=== PATIENT | female | born 1935 | race Caucasian/White ===

== ENCOUNTER → 2017-01-22 | Outpatient (CLI) | payer MEDICARE, MEDICAID | LOC: OD 11:36 | PROVIDERS: ATTEND Orthopaedic Surgery | DX: R78.89 Finding of other specified substances, not normally found in blood (principal) | CPT/HCPCS: 36415; 80178 ==

== ENCOUNTER 2017-02-12 10:30 | Emergency (ER) | payer MEDICARE, MEDICAID ==
--- NOTE | 2017-02-12 11:04 | ER Document Report ---
ED Medical Screen (RME) - General Chief Complaint: Back Pain Stated Complaint: BACK PAIN Time Seen by Provider: 02/12/17 11:03 Notes: Patient is bipolar and has dementia. She is brought in by family with complaints of low back pain for approximate 1 week. No known vomiting or diarrhea. No known trauma or fevers. TRAVEL OUTSIDE OF THE [place] IN LAST 30 DAYS: No - Related Data Allergies/Adverse Reactions: No Known Allergies Allergy (Verified 02/12/17 10:40) Home Medications: Current Home Medications Valsartan [Diovan 160 mg Tablet] 80 mg PO DAILY 02/12/17 [History] Past Medical History - Past Medical History Cardiac Medical History: Reports: Hx Hypercholesterolemia, Hx Hypertension Psychiatric Medical History: Reports: Hx Bipolar Disorder, Hx Depression Past Surgical History: Reports: Hx Cardiac Catheterization - Immunizations Hx Diphtheria, Pertussis, Tetanus Vaccination: Yes Physical Exam - Vital signs Vitals: Temp Pulse Resp BP Pulse Ox 98.6 F 96 20 202/72 H 100 02/12/17 10:42 02/12/17 10:42 02/12/17 10:42 02/12/17 10:42 02/12/17 10:42 Course - Vital Signs Vital signs: Temp Pulse Resp BP Pulse Ox 98.6 F 96 20 202/72 H 100 02/12/17 10:42 02/12/17 10:42 02/12/17 10:42 02/12/17 10:42 02/12/17 10:42
--- NOTE | 2017-02-12 11:49 | RADIOLOGY REPORT (SQ) ---
EXAM DESCRIPTION: L SPINE 2 VIEWS COMPLETED DATE/TIME: 02/12/2017 11:37 am REASON FOR STUDY: pain COMPARISON: CT abdomen pelvis 11/30/2015 NUMBER OF VIEWS: Two views. TECHNIQUE: AP and lateral radiographic images acquired of the lumbar spine. LIMITATIONS: Osteoporotic, lower thoracic spine not well seen on lateral view. Limited lateral lumbosacral junction films due to rotation FINDINGS: MINERALIZATION: Osteoporotic SEGMENTATION: Normal. No transitional anatomy. ALIGNMENT: Normal. VERTEBRAE: Maintained height. No fracture or worrisome bone lesion. DISCS: Multilevel disc space loss of height with anterior and lateral osteophyte formation throughout the lumbar spine POSTERIOR ELEMENTS: Pedicles and facets are intact. No pars defect or posterior arch defects. Bilat eral facet arthropathy at L5-S1 HARDWARE: None in the spine. PARASPINAL SOFT TISSUES: Normal. PELVIS: Left SI joint sclerosis. Bony pelvis not well seen otherwise OTHER: No other significant finding. IMPRESSION: No plain film evidence of acute lumbar compression deformity. Multilevel degenerative disc changes with facet arthropathy at L5-S1 TECHNICAL DOCUMENTATION: JOB ID: [id number]- All Rights Reserved
[2017-02-12 12:13] LABS: ABSOLUTE BASOPHILS # (AUTO) 0.1 10^3/uL (0.0-0.2); ABSOLUTE EOSINOPHILS # (AUTO) 0.1 10^3/uL (0.0-0.6); ABSOLUTE LYMPHOCYTES (AUTO) 1.7 10^3/uL (0.5-4.7); ABSOLUTE MONOCYTES (AUTO) 0.5 10^3/uL (0.1-1.4); ABSOLUTE NEUT (AUTO) 3.9 10^3/uL (1.7-8.2); BASOPHILS % (AUTO) 1.1 % (0-2); EOSINOPHILS % (AUTO) 1.7 % (0-6); HEMATOCRIT 34.4 % (36.0-47.0); HEMOGLOBIN 11.5 g/dL (12.0-15.5); HGB HCT DIFFERENCE 0.1; LYMPHOCYTES % (AUTO) 27.5 % (13-45); MEAN CORPUSCULAR HEMOGLOBIN 28.5 pg (27.0-33.4); MEAN CORPUSCULAR HGB CONC 33.4 g/dL (32.0-36.0); MEAN CORPUSCULAR VOLUME 85 fl (80-97); MONOCYTES % (AUTO) 8.3 % (3-13); RED BLOOD COUNT 4.03 10^6/uL (3.72-5.28); RED CELL DISTRIBUTION WIDTH 14.9 % (11.5-14.0); SEGMENTED NEUTROPHILS % (AUTO) 61.4 % (42-78); WHITE BLOOD COUNT 6.3 10^3/uL (4.0-10.5)
[2017-02-12 12:29] LABS: ALANINE AMINOTRANSFERASE 33 U/L (9-52); ALBUMIN 4.3 g/dL (3.5-5.0); ALKALINE PHOSPHATASE 91 U/L (38-126); ANION GAP 14 (5-19); ASPARTATE AMINO TRANSFERASE 19 U/L (14-36); BILIRUBIN,DIRECT 0.4 mg/dL (0.0-0.4); BILIRUBIN,TOTAL 0.4 mg/dL (0.2-1.3); BLOOD UREA NITROGEN 21 mg/dL (7-20); CALCIUM 9.6 mg/dL (8.4-10.2); CARBON DIOXIDE 23 mmol/L (22-30); CHLORIDE 110 mmol/L (98-107); CREATININE RESULT 1.16 mg/dL (0.52-1.25); GLUCOSE 128 mg/dL (75-110); POTASSIUM 4.1 mmol/L (3.6-5.0); SODIUM 146.9 mmol/L (137-145); TOTAL PROTEIN 6.5 g/dL (6.3-8.2)
[2017-02-12] MEDS ORDERED: ACETAMINOPHEN 325 MG TABLET PO ONE (14:34)
[2017-02-12 15:05] LABS: APPEARANCE,URINE CLEAR; BILIRUBIN,URINE NEGATIVE (NEGATIVE); GLUCOSE, URINE NEGATIVE (NEGATIVE); KETONES,URINE NEGATIVE (NEGATIVE); LEUKOCYTE ESTERASE,URINE NEGATIVE (NEGATIVE); NITRITE,URINE NEGATIVE (NEGATIVE); PROTEIN,URINE 100 mg/dL (NEGATIVE); URINE SPECIFIC GRAVITY 1.016; UROBILINOGEN,URINE NEGATIVE mg/dL (<2.0)
--- NOTE | 2017-02-12 16:09 | RADIOLOGY REPORT (SQ) ---
EXAM DESCRIPTION: CT LTD RENAL STONE PROTOCOL ON COMPLETED DATE/TIME: 02/12/2017 3:46 pm REASON FOR STUDY: right flank pain COMPARISON: November 2015 TECHNIQUE: CT scan of the abdomen and pelvis performed without intravenous or oral contrast. Images reviewed with lung, soft tissue, and bone windows. Reconstructed coronal and sagittal MPR images revi ewed. All images stored on PACS. All CT scanners at this facility use dose modulation, iterative reconstruction, and/or weight based d osing when appropriate to reduce radiation dose to as low as reasonably achievable (ALARA). [facility]: Dose Right [facility]: CareDose [facility]: Dose Right [facility]: Teradose 4D [facility]: Smart Coresonic RADIATION DOSE: Up-to-date CT equipment and radiation dose reduction techniques were employed. CTDIv ol: 6.4 mGy. DLP: 321 mGy-cm.mGy. LIMITATIONS: None. FINDINGS: LOWER CHEST: No significant findings. No nodules or infiltrates. NON-CONTRASTED LIVER, SPLEEN, ADRENALS: Evaluation limited by lack of IV contrast. No identified sign ificant masses. PANCREAS: No masses. No peripancreatic inflammatory changes. GALLBLADDER: No identified stones by CT criteria. No inflammatory changes to suggest cholecystitis. RIGHT KIDNEY AND URETER: No suspicious masses. Assessment limited by lack of IV contrast. No signif icant calcifications. No hydronephrosis or hydroureter. LEFT KIDNEY AND URETER: No suspicious masses. Assessment limited by lack of IV contrast. 4.1 cm in d iameter left renal cyst is identified. No significant calcifications. No hydronephrosis or hydrou reter. AORTA AND RETROPERITONEUM: No aneurysm. No retroperitoneal masses or adenopathy. BOWEL AND PERITONEAL CAVITY: No obvious masses or inflammatory changes. No free fluid. APPENDIX: Normal. PELVIS, BLADDER, AND ABDOMINAL WALL:Fluid collection is identified in the posterior cul-de-sac to the right of midline which is most consistent with free fluid however the possibility of an ovarian cyst cannot be excluded. This was not present on the previous study. Fluid collection measures 3.9 x 4. 1 cm in diameters. Pelvic ultrasound may be of value for further evaluation if clinically warranted. The previously described cystic mass in the left pelvis is no longer identified. Bladder normal. BONES: There is mild compression of the vertebral endplates in the lumbar spine at multiple levels wh ich appears stable as compared to the previous study. OTHER: No other significant finding. IMPRESSION: Fluid collection in the posterior cul-de-sac to the right of midline as noted above whic h is most consistent with free fluid however the possibility of an ovarian cyst cannot be excluded. This was not present on the previous study. Pelvic ultrasound may be of value for further evaluation if clinically warranted. Other findings as noted above COMMENT: Quality ID # [id number]: Final reports with documentation of one or more dose reduction techniques (e.g., Automated exposure control, adjustment of the mA and/or kV according to patient size, use of iterative reconstruction technique) TECHNICAL DOCUMENTATION: JOB ID: [id number] [employer]- All Rights Reserved
--- NOTE | 2017-02-12 16:26 | ER Document Report ---
ED General - General Chief Complaint: Back Pain Stated Complaint: BACK PAIN Time Seen by Provider: 02/12/17 11:03 Mode of Arrival: Ambulatory Information source: Patient, Relative Notes: 81-year-old female presents with complaints of right sided abdominal pain. Patient denies any fevers or chills denies any nausea vomiting or diarrhea. Patient notes the pain is more in her low back and side. She denies any urinary symptoms, she has these episodes once a year for the past 3 years TRAVEL OUTSIDE OF THE [place] IN LAST 30 DAYS: No - HPI Onset: Just prior to arrival Onset/Duration: Sudden Quality of pain: Achy Severity: Mild Pain Level: 1 Associated symptoms: Body/muscle aches Exacerbated by: Denies Relieved by: Denies Similar symptoms previously: No Recently seen / treated by doctor: No - Related Data Allergies/Adverse Reactions: No Known Allergies Allergy (Verified 02/12/17 10:40) Home Medications: Current Home Medications Acetaminophen [Tylenol Extra Strength 500 mg Tablet] 1 tab PO QHS 02/12/17 [ History] Escitalopram Oxalate 1 tab PO DAILY 02/12/17 [History] Lorazepam [Lorazepam] 10 mg PO BID 02/12/17 [History] Melatonin 2 tab PO QHS 02/12/17 [History] Omeprazole [Omeprazole] 2 cap PO DAILY 02/12/17 [History] Rosuvastatin Calcium 1 tab PO QHS 02/12/17 [History] Sennosides [Vegetable Laxative] 2 tab PO QHS 02/12/17 [History] Valsartan [Diovan 160 mg Tablet] 80 mg PO DAILY 02/12/17 [History] Past Medical History - Social History Smoking Status: Never Smoker Cigarette use (# per day): No Chew tobacco use (# tins/day): No Smoking Education Provided: No Frequency of alcohol use: None Drug Abuse: None Family History: Reviewed & Not Pertinent Patient has suicidal ideation: No Patient has homicidal ideation: No - Past Medical History Cardiac Medical History: Reports: Hx Hypercholesterolemia, Hx Hypertension Renal/ Medical History: Denies: Hx Peritoneal Dialysis Psychiatric Medical History: Reports: Hx Bipolar Disorder, Hx Depression Past Surgical History: Reports: Hx Cardiac Catheterization - Immunizations Hx Diphtheria, Pertussis, Tetanus Vaccination: Yes Review of Systems - Review of Systems Notes: REVIEW OF SYSTEMS: CONSTITUTIONAL : Denies fever, chills, or sweats. Denies recent illness. EENT: Denies eye, ear, throat, or mouth pain or symptoms. Denies nasal or sinus congestion or discharge. Denies throat, tongue, or mouth swelling or difficulty swallowing. CARDIOVASCULAR: Denies chest pain. Denies palpitations or racing or irregular heart beat. Denies ankle edema. RESPIRATORY: Denies cough, cold, or chest congestion. Denies shortness of breath, difficulty breathing, or wheezing. GASTROINTESTINAL: Right flank pain GENITOURINARY: Denies difficulty urinating, painful urination, burning, frequency, blood in urine, or discharge. FEMALE GENITOURINARY: Denies vaginal bleeding, heavy or abnormal periods, irregular periods. Denies vaginal discharge or odor. MUSCULOSKELETAL: Denies back or neck pain or stiffness. Denies joint pain or swelling. SKIN: Denies rash, lesions or sores. HEMATOLOGIC : Denies easy bruising or bleeding. LYMPHATIC: Denies swollen, enlarged glands. NEUROLOGICAL: Denies confusion or altered mental status. Denies passing out or loss of consciousness. Denies dizziness or lightheadedness. Denies headache. Denies weakness or paralysis or loss of use of either side. Denies problems with gait or speech. Denies sensory loss, numbness, or tingling. Denies seizures. PSYCHIATRIC: Denies anxiety or stress. Denies depression, suicidal ideation, or homicidal ideation. ALL OTHER SYSTEMS REVIEWED AND NEGATIVE. PHYSICAL EXAMINATION: GENERAL: Well-appearing, well-nourished and in no acute distress. HEAD: Atraumatic, normocephalic. EYES: Pupils equal round and reactive to light, extraocular movements intact, conjunctiva are normal. ENT: Nares patent, oropharynx clear without exudates. Moist mucous membranes. NECK: Normal range of motion, supple without lymphadenopathy LUNGS: Breath sounds clear to auscultation bilaterally and equal. No wheezes rales or rhonchi. HEART: Regular rate and rhythm without murmurs ABDOMEN: Soft, nontender, nondistended abdomen. No guarding, no rebound. No masses appreciated. Mild right CVA tenderness Female : deferred Musculoskeletal: Normal range of motion, no pitting or edema. No cyanosis. NEUROLOGICAL: Cranial nerves grossly intact. Normal speech, normal gait. Normal sensory, motor exams PSYCH: Normal mood, normal affect. SKIN: Warm, Dry, normal turgor, no rashes or lesions noted. Dictation was performed using [employer] voice recognition software Physical Exam - Vital signs Vitals: Temp Pulse Resp BP Pulse Ox 98.6 F 96 20 202/72 H 100 02/12/17 10:42 02/12/17 10:42 02/12/17 10:42 02/12/17 10:42 02/12/17 10:42 Course - Re-evaluation Re-evalutation: 02/12/17 16:24 Patient's lab work noted no significant abnormality, there is no tenderness in the right lower quadrant, CT is consistent with some free fluid which may be secondary to cyst rupture which may be irritating her abdomen. Daughter notes this is similar to previous 2 visits, I will have them follow-up with [facility] [employer] otherwise she looks well is in no distress very strict return precautions have been provided and family is very happy with this plan. She did eat and drink with no difficulty After performing a Medical Screening Examination, I estimate there is LOW risk for ACUTE APPENDICITIS, BOWEL OBSTRUCTION, ACUTE CHOLECYSTITIS, PERFORATED DIVERTICULITIS, INCARCERATED HERNIA, PANCREATITIS, PELVIC INFLAMMATORY DISEASE, PERFORATED ULCER, ECTOPIC , or TUBO-OVARIAN ABSCESS, thus I consider the discharge disposition reasonable. Also, there is no evidence or peritonitis , sepsis, or toxicity. I have reevaluated this patient multiple times and no significant life threatening changes are noted. The patient and I have discussed the diagnosis and risks, and we agree with discharging home with close follow-up with the understanding that symptoms and presentations can change. We also discussed returning to the Emergency Department immediately if new or worsening symptoms occur. We have discussed the symptoms which are most concerning (e.g., bloody stool, fever, changing or worsening pain, vomiting) that necessitate immediate return. - Vital Signs Vital signs: Temp Pulse Resp BP Pulse Ox 98.6 F 96 18 178/76 H 96 02/12/17 10:42 02/12/17 10:42 02/12/17 14:01 02/12/17 14:01 02/12/17 14:01 - Laboratory Result Diagrams: 02/12/17 11:57 02/12/17 11:57 Laboratory results interpreted by me: 02/12/17 02/12/17 02/12/17 11:57 11:57 14:48 Hgb 11.5 L Hct 34.4 L RDW 14.9 H Sodium 146.9 H Chloride 110 H BUN 21 H Est GFR ( Amer) 55 L Est GFR (Non-Af Amer) 45 L Glucose 128 H Urine Protein 100 H - Diagnostic Test Radiology reviewed: Image reviewed, Reports reviewed Discharge - Discharge Clinical Impression: Abdominal pain Qualifiers: Abdominal location: right upper quadrant Qualified Code(s): R10.11 - Right upper quadrant pain Condition: Stable Disposition: HOME, SELF-CARE Instructions: Abdominal Pain ([facility]) Prescriptions: Acetaminophen with Codeine [Tylenol #3 Tablet] 1 each PO Q4HP PRN #30 tablet PRN Reason: Referrals: [facility] [Provider Group] - Follow up tomorrow
[2017-02-12 17:00] VITALS: BP 188/73
== END 2017-02-12 17:00 | disposition home or self-care (01) ==
LOC: ER 10:30
DX: R10.11 Right upper quadrant pain (principal); M54.9 Dorsalgia, unspecified; M54.5 Low back pain; Z79.899 Other long term (current) drug therapy
CPT/HCPCS: 99284; 51701; 36415; 85025; 80053; 81001; 72100; 76380; A9270

== ENCOUNTER 2017-09-17 11:42 | Emergency (ER) | payer MEDICARE, MEDICAID ==
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
[2017-09-17 12:53] LABS: ABSOLUTE EOSINOPHILS # (AUTO) 0.1 10^3/uL (0.0-0.6); ABSOLUTE LYMPHOCYTES (AUTO) 1.3 10^3/uL (0.5-4.7); ABSOLUTE MONOCYTES (AUTO) 0.4 10^3/uL (0.1-1.4); ABSOLUTE NEUT (AUTO) 3.7 10^3/uL (1.7-8.2); BASOPHILS % (AUTO) 0.9 % (0-2); EOSINOPHILS % (AUTO) 2.4 % (0-6); HEMATOCRIT 32.9 % (36.0-47.0); HEMOGLOBIN 10.9 g/dL (12.0-15.5); MEAN CORPUSCULAR HEMOGLOBIN 26.4 pg (27.0-33.4); MEAN CORPUSCULAR HGB CONC 33.2 g/dL (32.0-36.0); MEAN CORPUSCULAR VOLUME 80 fl (80-97); MONOCYTES % (AUTO) 7.6 % (3-13); PLATELET COUNT 290 10^3/uL (150-450); RED BLOOD COUNT 4.13 10^6/uL (3.72-5.28); RED CELL DISTRIBUTION WIDTH 16.4 % (11.5-14.0); SEGMENTED NEUTROPHILS % (AUTO) 66.1 % (42-78); TOTAL CELLS COUNTED % (AUTO) 100 %; WHITE BLOOD COUNT 5.6 10^3/uL (4.0-10.5)
[2017-09-17 13:09] LABS: ALANINE AMINOTRANSFERASE 20 U/L (9-52); ALBUMIN 4.4 g/dL (3.5-5.0); ALKALINE PHOSPHATASE 101 U/L (38-126); ANION GAP 12 (5-19); ASPARTATE AMINO TRANSFERASE 16 U/L (14-36); BILIRUBIN,DIRECT 0.2 mg/dL (0.0-0.4); BILIRUBIN,TOTAL 0.2 mg/dL (0.2-1.3); BLOOD UREA NITROGEN 27 mg/dL (7-20); CALCIUM 9.9 mg/dL (8.4-10.2); CARBON DIOXIDE 25 mmol/L (22-30); CHLORIDE 109 mmol/L (98-107); GLUCOSE 134 mg/dL (75-110); POTASSIUM 4.6 mmol/L (3.6-5.0); SODIUM 146.1 mmol/L (137-145); TOTAL PROTEIN 6.5 g/dL (6.3-8.2)
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
[2017-09-18 03:35] LABS: APPEARANCE,URINE CLEAR; BILIRUBIN,URINE NEGATIVE (NEGATIVE); COLOR,URINE STRAW; GLUCOSE, URINE NEGATIVE (NEGATIVE); KETONES,URINE NEGATIVE (NEGATIVE); LEUKOCYTE ESTERASE,URINE NEGATIVE (NEGATIVE); NITRITE,URINE NEGATIVE (NEGATIVE); PROTEIN,URINE NEGATIVE (NEGATIVE); URINE SPECIFIC GRAVITY 1.006; UROBILINOGEN,URINE NEGATIVE mg/dL (<2.0)
[2017-09-18 03:49] LABS: URINE AMPHETAMINES SCREEN NEGATIVE; URINE BARBITURATES SCREEN NEGATIVE; URINE BENZODIAZEPINES SCREEN NEGATIVE; URINE COCAINE SCREEN NEGATIVE; URINE MARIJUANA (THC) SCREEN NEGATIVE; URINE METHADONE SCREEN NEGATIVE; URINE PHENCYCLIDINE SCREEN NEGATIVE
--- NOTE | 2017-09-18 07:56 | EKG REPORT ---
SEVERITY:- ABNORMAL ECG - SINUS RHYTHM PROBABLE LVH WITH SECONDARY REPOL ABNRM : Confirmed by: Ingrid Badillo MD 18-Sep-2017 07:55:33
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
[2017-09-18] MEDS ORDERED: TUBERCULIN,PURIF.PROT.DERIV. 5 TU/0.1 ML TEST 1 ML VIAL ID ONE (15:02)
[2017-09-19] MEDS ORDERED: HYDRALAZINE HCL 50 MG TABLET PO ONE (01:10)
[2017-09-19] MEDS ORDERED: CLONIDINE 0.1 MG/24 HR PATCH.TDWK TD SCH ×2 (10:00→11:30)
[2017-09-19] MEDS: CARBAMAZEPINE 100 MG TAB.CHEW PO SCH ×2 (10:18→21:40)
[2017-09-19] MEDS: AMLODIPINE BESYLATE 10 MG TABLET PO SCH (10:19)
[2017-09-19] MEDS: CLOPIDOGREL BISULFATE 75 MG TABLET PO SCH (10:19)
[2017-09-19] MEDS: HYDRALAZINE HCL 50 MG TABLET PO SCH ×2 (10:19→21:39)
[2017-09-19] MEDS: LANSOPRAZOLE 30 MG TAB.RAP.DR PO SCH (10:20)
[2017-09-19] MEDS: METOPROLOL SUCCINATE 25 MG TAB.SR.24H PO SCH (10:20)
[2017-09-19] MEDS: ESCITALOPRAM OXALATE 10 MG TABLET PO SCH (10:20)
[2017-09-19] MEDS: VALSARTAN 80 MG TABLET PO SCH (10:20)
[2017-09-19] MEDS: OXYBUTYNIN CHLORIDE 5 MG TABLET PO SCH (10:20)
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
[2017-09-19] MEDS ORDERED: GABAPENTIN 300 MG CAPSULE PO SCH (22:00)
[2017-09-19] MEDS ORDERED: ATORVASTATIN CALCIUM 10 MG TABLET PO SCH (22:00)
[2017-09-20] MEDS: VALSARTAN 80 MG TABLET PO SCH (09:30)
[2017-09-20] MEDS: CARBAMAZEPINE 100 MG TAB.CHEW PO SCH (09:30)
[2017-09-20] MEDS: CLOPIDOGREL BISULFATE 75 MG TABLET PO SCH (09:30)
[2017-09-20] MEDS: HYDRALAZINE HCL 50 MG TABLET PO SCH (09:31)
[2017-09-20] MEDS: METOPROLOL SUCCINATE 25 MG TAB.SR.24H PO SCH (09:31)
[2017-09-20] MEDS: AMLODIPINE BESYLATE 10 MG TABLET PO SCH (09:31)
[2017-09-20] MEDS: OXYBUTYNIN CHLORIDE 5 MG TABLET PO SCH (09:31)
[2017-09-20] MEDS: LANSOPRAZOLE 30 MG TAB.RAP.DR PO SCH (09:31)
[2017-09-20] MEDS: ESCITALOPRAM OXALATE 10 MG TABLET PO SCH (09:38)
--- NOTE | 2017-09-20 10:52 | ER Document Report ---
Doctor's Note Notes: 09/20/17 10:51 Rounds: Patient has been accepted to live in an assisted living facility, [facility], and she is scheduled to leave this afternoon. All current medications will be maintained. Patient is in no distress without complaints. Vital signs were all essentially normal except for her blood pressure still being slightly elevated, but acceptable level. Patient appears to be medically stable for transfer or discharge. Lindsay Delgadillo MD
[2017-09-20 15:14] VITALS: BP 180/65
[2017-09-25] MEDS ORDERED: CLONIDINE 0.1 MG/24 HR PATCH.TDWK TD SCH (10:00)
== END 2017-09-20 15:34 | disposition home health service (06) ==
LOC: ER 11:42
DX: T74.91XA Unspecified adult maltreatment, confirmed, initial encounter (principal); Y07.499 Other family member, perpetrator of maltreatment and neglect; F03.90 Unspecified dementia, unspecified severity, without behavioral disturbance, psychotic disturbance, mood disturbance, and anxiety; F31.9 Bipolar disorder, unspecified; Z79.899 Other long term (current) drug therapy; I10 Essential (primary) hypertension; Z75.1 Person awaiting admission to adequate facility elsewhere; Z87.891 Personal history of nicotine dependence
CPT/HCPCS: 93005; 99285; 96372; 36415; 84443; 85025; 80053; 81001; 80307; 93010; A9270 ×20; J3490